=== PATIENT | male | born 1955 | race Caucasian/White ===

== ENCOUNTER 2024-01-12 07:34 | Emergency (ER) | payer MEDICARE, OTHER, SELFPAY ==
[2024-01-12] VITALS (10 sets, daily range): BP systolic 149–166; BP diastolic 70–89; PULSE 58–74; RESP 14–23; TEMP 36.4; O2SAT 96–99; BMI 33.2
--- NOTE | 2024-01-12 07:58 | ED.GENADULT ---
HPI - General Adult General Chief complaint: Abdominal Pain Stated complaint: r abd side pain Time Seen by Provider: 01/12/24 07:48 Source: patient Mode of arrival: Ambulatory History of Present Illness HPI narrative: 68-year-old gentleman with a history of hypertension hyperlipidemia [place] their [place] the weekend began having left-sided flank pain acutely at 3:00 a.m. initially rated at a 9/10. He was up and walking trying to drink some water, describes no fevers no change in symptoms with a bowel movement, no significant diarrhea, chest pain, cough, palpitations. He notes that he does have a history of kidney stones that were actually relatively asymptomatic with minimal pain. Related Data Allergies Allergy/AdvReac Type Severity Reaction Status Date / Time No Known Drug Allergies Allergy Verified 01/12/24 07:52 Review of Systems Review of Systems Narrative: Pertinent positive and negative findings as per HPI Patient History Medical History (Updated 01/12/24 @ 10:04 by Domitila Conner MD) Kidney stones Hyperlipidemia Hypertension Social History Smoking Status: Never smoker Smoking Status: Never smoker alcohol intake frequency: other Substance Use Type: does not use Exam Initial Vital Signs Initial Vital Signs: Vital Signs Temperature 97.5 F L 01/12/24 07:53 Pulse Rate 63 01/12/24 07:53 Respiratory Rate 18 01/12/24 07:53 Blood Pressure 166/78 H 01/12/24 07:53 Pulse Oximetry 97 01/12/24 07:53 Oxygen Delivery Method Room Air 01/12/24 07:53 General: Healthy appearing, in no acute distress. Able to give a complete and coherent history. Well-nourished well-developed HEENT: Moist mucous membranes, normal sclera with reactive pupils, Neck: No JVD, supple Respiratory: Lungs are clear to auscultation, no wheezing no rales no rhonchi. Full and symmetrical air movement Cardiac: Regular rate and rhythm no murmurs no bruits Abdomen: Soft, nontender, good bowel tones, no flank pain at this time however the description of his pain is over and around his right kidney. Skin: Warm and dry, no rashes Neurologic: Grossly neurologically intact with no obvious asymmetries or abnormalities Extremities: No trauma, well perfused Psych: Cooperative, appropriate insight and affect Course Orders Ordered: ED Orders 01/12/24 07:52 Urine Microscopic Stat 01/12/24 08:02 Complete Blood Count AUTO DIFF Stat Comprehensive Metabolic Panel Stat 01/12/24 08:21 CT kidney ureter bladder (KUB) Stat Discontinued Medications Sodium Chloride (Normal Saline 0.9%) 1,000 mls @ 1,000 mls/hr IV BOLUS ONE Stop: 01/12/24 09:20 Last Admin: 01/12/24 08:43 Dose: 1,000 mls/hr Documented By: RACHAEL Vital Signs Vital signs: Vital Signs - 8 hr 01/12/24 07:53 Temperature 97.5 F L Pulse Rate 63 Respiratory Rate 18 Blood Pressure 166/78 H Pulse Oximetry 97 Oxygen Delivery Method Room Air Medical Decision Making Lab Data 01/12/24 08:02 01/12/24 08:02 Labs: Lab Results 01/12/24 01/12/24 Range/Units 07:52 08:02 WBC 9.5 (4.5-11.0) X10^3/uL RBC 4.93 (4.5-5.9) X10^6/uL Hgb 15.1 (13.5-17.5) g/dL Hct 44.4 (41-53) % MCV 90.2 (80-100) fL MCH 30.7 (26-34) PG MCHC 34.0 (30-36) % RDW 13.0 (11.6-14.8) % Plt Count 265 (150-400) X10^3/uL Neut % (Auto) 83.9 H (50-75) % Lymph % (Auto) 11.4 L (25-40) % Bladen % (Auto) 3.8 (3-14) % Eos % (Auto) 0.3 L (2-4) % Baso % (Auto) 0.6 (0-2) % Neut # (Auto) 8000 H (4072-9705) /uL Lymph # (Auto) 1100 (4944-6342) /uL Bladen # (Auto) 400 (0-900) /uL Eos # (Auto) 0 (0-450) /uL Baso # (Auto) 100 (0-100) /uL Sodium 136 L (137-145) mmol/L Potassium 5.5 H (3.4-5.1) mmol/L Chloride 105 (98-107) mmol/L Carbon Dioxide 24 (22-32) mmol/L BUN 27 H (9-20) mg/dL Creatinine 0.75 (0.66-1.25) mg/dL Estimated GFR > 60 (>60) mL/min BUN/Creatinine Ratio 36.0 H (6-22) Glucose 110 (80-110) mg/dL Calcium 8.7 (8.4-10.2) mg/dL Total Bilirubin 1.6 H (0.2-1.3) mg/dL AST 54 (17-59) IU/L ALT 37 (<50) IU/L Alkaline Phosphatase 40 (38-126) U/L Total Protein 8.1 (6.3-8.2) g/dL Albumin 4.8 (3.5-5.0) g/dL Globulin 3.3 (1.7-4.1) g/dL Albumin/Globulin Ratio 1.5 (1.0-2.8) Urine RBC 5-10/hpf H (0-5/HPF) Urine WBC 1-5/hpf (0-5/HPF) Ur Squamous Epith Cells 1-5 /hpf (0-5/HPF) Urine Bacteria Occasional (0-1) (None) Ur Culture Indicated? Cult not indicated Vol Urine Centrifuged 10ml (spun) Urine Dip Bedside Urine Glucose Negative Bedside Urine Bilirubin - Negative Bedside Urine Ketone - Negative Urine Specific Council 1.025 Bedside Urine Occult Blood ++ Bedside Urine pH 5.5 Bedside Urine Protein - Negative Bedside Urine Urobilinogen - Negative Bedside Urine Nitrite - Negative Bedside Urine Leukocytes - Negative Esterase Point of care testing: Urine Dip Bedside Urine Glucose Negative Bedside Urine Bilirubin - Negative Bedside Urine Ketone - Negative Urine Specific Council 1.025 Bedside Urine Occult Blood ++ Bedside Urine pH 5.5 Bedside Urine Protein - Negative Bedside Urine Urobilinogen - Negative Bedside Urine Nitrite - Negative Bedside Urine Leukocytes - Negative Esterase Imaging Data CT scan - abdomen/pelvis: Radiologist's Impression: PROCEDURE: CT KIDNEY URETER BLADDER (KUB) INDICATIONS: R flank pain TECHNIQUE: Axial sections were acquired from the lung bases to the pubic symphysis. Coronal and sagittal reformats were performed. For radiation dose reduction, the following was used: automated exposure control, adjustment of mA and/or kV according to patient size. COMPARISON: None. FINDINGS: Image quality: Diagnostic. Lower Chest: No significant findings. URINARY: Right Kidney: No stones or hydronephrosis. Right Ureter: No hydroureter. Left Kidney: 3-4 millimeter nonobstructing nephrolithiasis present. No hydronephrosis. Left Ureter: No hydroureter. Bladder: Normal wall thickness. No stones. ABDOMEN: Liver: No contour-deforming solid mass. Gallbladder: No radiopaque gallstones or wall thickening. Biliary ducts: No biliary dilation. Pancreas: No ductal dilation. Spleen: Size is within normal limits. Adrenal Glands: No adrenal nodules. Stomach and Bowel: Normal colonic caliber, without significant wall thickening. Normal appendix. Colonic diverticulosis without evidence of diverticulitis. Peritoneum: No abnormal intraperitoneal fluid. No free air. Ventral Wall: No hernia. Abdominal Nodes: No enlarged retroperitoneal or mesenteric lymph nodes. Vessels: Aorta and inferior vena cava are normal in size. PELVIS: Pelvic Organs: Unremarkable. Pelvic Nodes: Unremarkable. Miscellaneous: Small left inguinal hernia containing fat. Bones: Degenerative disc disease of the lumbar spine. IMPRESSION: No obstructing stones or hydronephrosis. 3-4 millimeter nonobstructing left-sided nephrolithiasis. Normal appendix. Normal gallbladder. Colonic diverticulosis without evidence of diverticulitis. Dictated by: Héctor Gr M.D. on 01/12/2024 at 8:35 MDM Narrative Medical decision making narrative: CC: Acute onset right flank pain now resolving Complicating co-morbidities: Hypertension, hyperlipidemia prior history of asymptomatic stones Data collected from: patient Social determinants of health that may influence the patients condition: Patient currently is in the area on vacation Differential considered: Kidney stone, constipation, biliary disease, appendicitis Exam documented above, pertinent findings include:, exam this point is entirely benign with pain essentially resolved Lab Test results independently reviewed as above. Pertinent findings: Imaging studies independently reviewed: CT scan of the abdomen and pelvis shows left-sided renal stone, no ureterolithiasis and no hydronephrosis. There is a moderate amount of stool through the colon which may explain part of his pain. Discussion: 68-year-old gentleman with acute right-sided flank pain now significantly improved. CT scan does not suggest acute ureterolithiasis. He did have mild hematuria without evidence of urinary tract infection. I do not suspect prostate issues at this time. CT scan shows a moderate amount of stool will recommend stool softeners. At this point there was no indication for additional workup or hospitalization and he is safe for discharge Discharge Plan Departure Patient Disposition: Home Clinical Impression: Abdominal pain Qualifiers: Abdominal location: right lower quadrant Qualified Code(s): R10.31 - Right lower quadrant pain Instructions: DI for Kidney Stones, DI for Abdominal Pain-Adult Activity Restrictions/Additional Instructions: Thank you for coming in today You do have a small kidney stone on the left side that is way up in your kidney and is not causing any acute problems. You had a small amount of blood in your urine and we can often have see this in the setting of kidney stones. It does not look like you recently passed a kidney stone on the right side, there is no swelling to the ureter and the kidney looks very healthy. You do have a moderate amount of stool through your colon than this may have been contributing to your pain over the course of the evening. I would recommend stool softener or laxative of choice to see if this makes a difference with the abdominal pain. I am not seeing any evidence for infection, abscess, need for hospital admission or surgery and there was no current indication for additional blood work or imaging studies. If you find that you are getting worse or develop any new symptoms, please feel free to return to the emergency department for further evaluation. Stand Alone Forms: Patient Portal/API
[2024-01-12 08:17] LABS: Bacteria Urine Occasional (0-1); Urine Volume 10mL (spun)
[2024-01-12 08:18] LABS: Culture Indicated Urine Cult Not Indicated; RBC Urine 5-10/HPF (0-5/HPF); Squamous Epithelial Cell Urine 1-5 /HPF (0-5/HPF); WBC Urine 1-5/HPF (0-5/HPF)
--- NOTE | 2024-01-12 08:21 | DI.CT.S_ITS ---
PROCEDURE: CT KIDNEY URETER BLADDER (KUB) INDICATIONS: R flank pain TECHNIQUE: Axial sections were acquired from the lung bases to the pubic symphysis. Coronal and sagittal reformats were performed. For radiation dose reduction, the following was used: automated exposure control, adjustment of mA and/or kV according to patient size. COMPARISON: None. FINDINGS: Image quality: Diagnostic. Lower Chest: No significant findings. URINARY: Right Kidney: No stones or hydronephrosis. Right Ureter: No hydroureter. Left Kidney: 3-4 millimeter nonobstructing nephrolithiasis present. No hydronephrosis. Left Ureter: No hydroureter. Bladder: Normal wall thickness. No stones. ABDOMEN: Liver: No contour-deforming solid mass. Gallbladder: No radiopaque gallstones or wall thickening. Biliary ducts: No biliary dilation. Pancreas: No ductal dilation. Spleen: Size is within normal limits. Adrenal Glands: No adrenal nodules. Stomach and Bowel: Normal colonic caliber, without significant wall thickening. Normal appendix. Colonic diverticulosis without evidence of diverticulitis. Peritoneum: No abnormal intraperitoneal fluid. No free air. Ventral Wall: No hernia. Abdominal Nodes: No enlarged retroperitoneal or mesenteric lymph nodes. Vessels: Aorta and inferior vena cava are normal in size. PELVIS: Pelvic Organs: Unremarkable. Pelvic Nodes: Unremarkable. Miscellaneous: Small left inguinal hernia containing fat. Bones: Degenerative disc disease of the lumbar spine. IMPRESSION: No obstructing stones or hydronephrosis. 3-4 millimeter nonobstructing left-sided nephrolithiasis. Normal appendix. Normal gallbladder. Colonic diverticulosis without evidence of diverticulitis. Dictated by: Héctor Gr M.D. on 01/12/2024 at 8:35 Approved by: Héctor Gr M.D. on 01/12/2024 at 8:37
[2024-01-12 08:27] LABS: Add Manual Diff / Slide Review NO; Basophils Absolute Auto 100 /uL (0-100); Basophils Percent Auto 0.6 % (0-2); Eosinophils Absolute Auto 0 /uL (0-450); Eosinophils Percent Auto 0.3 % (2-4); Hematocrit 44.4 % (41-53); Hemoglobin 15.1 g/dL (13.5-17.5); Lymphocytes Absolute Auto 1100 /uL (1100-4500); Lymphocytes Percent Auto 11.4 % (25-40); Mean Corpuscular Hemoglobin 30.7 PG (26-34); Mean Corpuscular Volume 90.2 fL (80-100); Monocytes Absolute Auto 400 /uL (0-900); Monocytes Percent Auto 3.8 % (3-14); Neutrophils Absolute Auto 8000 /uL (1500-7000); Neutrophils Percent Auto 83.9 % (50-75); Platelet Count 265 X10^3/uL (150-400); Red Blood Cell Count 4.93 X10^6/uL (4.5-5.9); White Blood Cell Count 9.5 X10^3/uL (4.5-11.0)
[2024-01-12] MEDS: SODIUM CHLORIDE 0.9% 1,000 ML 1000 ML IV (08:43)
[2024-01-12 08:49] LABS: Alanine Aminotransferase 37 IU/L (<50); Albumin 4.8 g/dL (3.5-5.0); Albumin Globulin Ratio 1.5 (1.0-2.8); Alkaline Phosphatase 40 U/L (38-126); Aspartate Aminotransferase 54 IU/L (17-59); Bilirubin Total 1.6 mg/dL (0.2-1.3); Blood Urea Nitrogen 27 mg/dL (9-20); Calcium 8.7 mg/dL (8.4-10.2); Carbon Dioxide 24 mmol/L (22-32); Chloride 105 mmol/L (98-107); Estimated Glomerular Filt Rate > 60 mL/min (>60); Globulin 3.3 g/dL (1.7-4.1); Glucose 110 mg/dL (80-110); Sodium 136 mmol/L (137-145); Total Protein 8.1 g/dL (6.3-8.2)
[2024-01-12 08:58] LABS: HEMOLYSIS 198 (0-50)
[2024-01-12 08:59] LABS: Potassium 5.5 mmol/L (3.4-5.1)
== END 2024-01-12 10:28 | disposition home or self-care (01) ==
PROVIDERS: Emergency Provider Emergency Medicine
DX: R10.31 Right lower quadrant pain (principal)
CPT/HCPCS: 74176; 80053; 81003; 81015; 85025; 96360; 99283; 99284